=== PATIENT | female | born 1975 | race Caucasian/White ===

== ENCOUNTER 2018-04-04 23:56 | Emergency (ER) | payer BC ==
[2018-04-04 23:56] VITALS: BMI 22.4
[2018-04-05 00:12] VITALS: TEMP 98.2
--- NOTE | 2018-04-05 00:17 | C.PDOC ---
History Of Present Illness The patient is brought to the ED by ambulance for evaluation of public alcohol intoxication. Patient was found wandering in the street with a strong alcoholic odor on her breath. An empty bottle of Aurora was found in patient's purse. Patient does not show any evidence of trauma/injuries and has no complaints at this time. Time Seen by Provider: 04/05/18 00:17 Chief Complaint (Nursing): Substance Abuse History Per: Patient, EMS History/Exam Limitations: intoxication Onset/Duration Of Symptoms: Hrs Current Symptoms Are (Timing): Still Present Suicide/Self Injury Attempted (Context): None Modifying Factor(s): Alcohol Severity: None Pain Scale Rating Of: 0 Associated Symptoms: denies: Suicidal Thoughts, Suicidal Plan Involuntary Hold By: None Recent travel outside of the [place]: No Additional History Per: Patient, EMS Past Medical History Reviewed: Historical Data, Nursing Documentation, Vital Signs Vital Signs: Last Vital Signs Temp 98.2 F 04/05/18 00:08 Pulse 89 04/05/18 02:09 Resp 18 04/05/18 02:09 BP 124/69 04/05/18 02:09 Pulse Ox 98 04/05/18 02:09 - Medical History PMH: Anxiety, Depression Denies: Diabetes, Hepatitis, HIV, HTN, Chronic Kidney Disease, Seizures, Sexually Transmitted Disease Surgical History: Cholecystectomy - [facility] Procedures CERVICAL BIOPSY NEC (08/03/00) D & C NEC (08/03/00) MEDICATION MANAGEMENT (11/11/16) NEBULIZER THERAPY (07/18/04) PSYCHIAT DRUG THERAP NEC (06/24/15) Family History: States: Unknown Family Hx - Social History Hx Tobacco Use: No Hx Alcohol Use: Yes Hx Substance Use: Yes - Immunization History Hx Tetanus Toxoid Vaccination: No Hx Influenza Vaccination: No Hx Pneumococcal Vaccination: No Review Of Systems Constitutional: Negative for: Fever, Chills Cardiovascular: Negative for: Chest Pain, Palpitations Respiratory: Negative for: Cough, Shortness of Breath Gastrointestinal: Negative for: Nausea, Vomiting, Abdominal Pain Skin: Negative for: Rash, Lesions, Jaundice, Bruising Psych: Positive for: Other (EtOH intoxication ). Negative for: Suicidal ideation Physical Exam - Physical Exam Appears: Non-toxic, No Acute Distress, Other (visibly intoxicated ) Skin: Warm, Dry Head: Normacephalic Eye(s): bilateral: Normal Inspection Oral Mucosa: Moist, Other (alcohol on breath ) Neck: Supple Chest: Symmetrical, No Deformity, No Tenderness Cardiovascular: Rhythm Regular, No Murmur Respiratory: No Rales, No Rhonchi, No Wheezing Extremity: Normal ROM, Capillary Refill (less than 2 seconds ) Neurological/Psych: Other (arousable to touch and verbal stimuli ) ED Course And Treatment O2 Sat by Pulse Oximetry: 99 (on RA) Pulse Ox Interpretation: Normal Reevaluation Time: 04:53 Reassessment Condition: Improved Disposition Counseled Patient/Family Regarding: Studies Performed, Diagnosis - Disposition Referrals: [facility] at [facility] [Outside] Disposition: HOME/ ROUTINE Disposition Time: 00:17 Condition: FAIR Instructions: Alcohol Abuse and Alcoholism (DC) Forms: [employer] (Czech) - Clinical Impression Clinical Impression: Alcohol intoxication - Scribe Statement The provider has reviewed the documentation as recorded by the Scribe (Nisa Appiah) Provider Attestation: All medical record entries made by the Scribe were at my direction and personally dictated by me. I have reviewed the chart and agree that the record accurately reflects my personal performance of the history, physical exam, medical decision making, and the department course for this patient. I have also personally directed, reviewed, and agree with the discharge instructions and disposition.
[2018-04-05 06:36] VITALS: BP 140/87; PULSE 84; RESP 20; O2SAT 100
== END 2018-04-05 06:00 | disposition home or self-care (01) ==
LOC: C.ER 23:56 → SUPCPDRO 23:56 → C.ER 04-05 06:00
DX: F10.129 Alcohol abuse with intoxication, unspecified (principal)